=== PATIENT | male | born 1940 | race Caucasian/White ===

== ENCOUNTER 2018-07-02 11:59 | Day surgery (SDC) | payer MEDICARE, BC ==
[2018-07-02] MEDS ORDERED: LIDOCAINE 2% MDV (20MG/ML) 20ML VIAL IV ONE (12:00)
[2018-07-02] MEDS ORDERED: PROPOFOL 10 MG/ML VIAL IV ONE (12:00)
--- NOTE | 2018-07-02 16:50 | Operative Note ---
DATE OF SURGERY: 07/02/2018 OPERATION: ESOPHAGOGASTRODUODENOSCOPY with multiple biopsies. INDICATION: Recent episodes of pyrosis as well as pain in the epigastrium on eating. Upper endoscopy is performed at this time for further evaluation. ANESTHESIA: Intravenous sedation was administered by the department of anesthesiology and included Diprivan titrated to effect. PROCEDURE: Following informed consent from this alert individual, including a discussion of the risks and benefits of the procedure and an opportunity for the patient to ask questions, the patient was in the left lateral decubitus position. The Olympus [id number] video endoscope was inserted into the esophagus without resistance. The proximal esophagus had a normal appearance with normal folds and distensibility. The mid esophagus likewise was free from changes. The distal esophageal segment demonstrated ulceration at the level of the squamocolumnar junction. It was superficial and circumferential. There was some edema and erythema noted at this area as well. The stomach was then entered. The gastric fundus and pars media had a normal appearance with normal folds and distensibility but the antrum evaluated circumferentially demonstrated some patchy erythema. No ulcerations or erosions were seen. The pylorus was symmetrical and patent. The duodenal bulb, sweep and descending duodenum were then examined in a serial fashion and demonstrated multiple small duodenal ulcers involving the bulb and second portion of the duodenum. The instrument was then withdrawn back into the body of the stomach. Retroflexion accomplished following air insufflation failed to demonstrate any additional changes. The endoscope was then straightened. Biopsies were first taken from the stomach to assess for Helicobacter pylori and check histology. A second set of biopsies was then taken from the GE junction at the site of ulceration. After biopsies were completed. The endoscope was then withdrawn back through a normal otherwise unremarkable esophagus and removed from the patient. The patient tolerated the procedure well and was returned to the recovery area in stable condition. IMPRESSION: 1. Ulcerative distal esophagitis. 2. Multiple duodenal ulcers involving the duodenal bulb and second portion. 3. Antral gastritis. Biopsies taken. RECOMMENDATION: The patient will be started on Protonix 40 mg each morning. Further recommendations may be forthcoming pending results of pathology obtained today. As always, thank you for allowing me to participate in the care of your patient. CC: Riki VALDEZ
--- NOTE | 2018-07-02 16:50 | Operative Note ---
DATE OF SURGERY: 07/02/2018 OPERATION: COLONOSCOPY to the cecum with cold snare polypectomy x2. INDICATION: Prior history of colon polyps. The patient's last examination was 5 years ago. ANESTHESIA: Intravenous sedation was administered by the department of anesthesiology and included Diprivan titrated to effect. PROCEDURE: Following informed consent from this alert individual including a discussion of the risks and benefits of the procedure and an opportunity for the patient to ask questions, the patient was in the left lateral decubitus position. A digital rectal examination was performed. No abnormalities were noted. Following this, the Olympus [id number] video colonoscope was inserted into the rectum without resistance. The rectal mucosa had a normal appearance with normal folds and distensibility. The colonoscope was advanced up through the bowel to the level of the cecum without much difficulty. Scattered diverticula were seen in the sigmoid colon. The cecum was defined by noting the appendiceal orifice and ileocecal valve. The colon preparation overall was good. From the base of the cecum, the colonoscope was then slowly withdrawn. In the proximal transverse colon, there was a 4 mm polyp noted which was removed with cold snare polypectomy and suctioned through the colonoscope into a collection trap. No other polyps were seen until the rectum was reached. At the mid rectum there was a second 6 mm polyp noted which was likewise removed with cold snare polypectomy. Retroflexion in the rectum was endoscopically unremarkable. The endoscope was straightened and withdrawal. The patient tolerated the procedure well and was returned to the recovery area in stable condition. IMPRESSION: 1. A 4 mm transverse colon polyp removed with cold snare polypectomy. 2. A 6 mm rectal polyp removed with cold snare polypectomy. 3. Sigmoid diverticulosis. RECOMMENDATIONS: Further recommendations will be forthcoming pending results of pathology obtained today. Followup will also be with Dr. Nilesh Gardner. As always, thank you for allowing me to participate in the care of your patient. CC: Riki VALDEZ
== END 2018-07-02 13:54 | disposition home or self-care (01) ==
LOC: HOP 11:59
PROVIDERS: ATTEND Internal Medicine Gastroenterology
DX: Z12.11 Encounter for screening for malignant neoplasm of colon (principal); Z86.010 Personal history of colon polyps; D12.3 Benign neoplasm of transverse colon; D12.8 Benign neoplasm of rectum; K57.30 Diverticulosis of large intestine without perforation or abscess without bleeding; R10.13 Epigastric pain; K22.10 Ulcer of esophagus without bleeding; K26.9 Duodenal ulcer, unspecified as acute or chronic, without hemorrhage or perforation; K29.70 Gastritis, unspecified, without bleeding; I10 Essential (primary) hypertension; E78.00 Pure hypercholesterolemia, unspecified

== ENCOUNTER 2019-07-18 21:38 | Emergency (ER) | payer MEDICARE, BC ==
[2019-07-18] MEDS ORDERED: ASPIRIN 81 MG CHEWABLE TABLET PO ONE (21:39)
--- NOTE | 2019-07-18 21:46 | Emergency Department Record ---
History of Present Illness - General Stated Complaint: CHEST PAIN Time Seen by Provider: 07/18/19 21:39 Source: Patient, Family Mode of Arrival: Ambulatory Limitations: No limitations - History of Present Illness Initial Comments: 79 yo male presents with chest pain that started in the last 30 minutes. The chest pain is over the mid chest and to the right. He has some radiation down the right arm. No radiation to the back. No shortness of breath. No cough. No abdominal pain. No leg pain or edema. The pain is an ache or throb. Not sharp. He denies any history of CAD. He does exercise regularly. PCP is Dr Gardner. The discomfort was 5-10 at its maximum. It is currently 1-2/ 10. MD Complaint: Chest pain -: Minutes(s) (30) Pain Location: Substernal, Right chest Pain Radiation: RUE Severity: Moderate Quality: Aching Consistency: Constant, Other (Improving) Improves With: Nothing Worsens With: Nothing Context: Other Anginal Symptoms: Other Other Symptoms: Burping Treatments Prior to Arrival: None - Related Data Home Medications Medication Instructions Recorded Confirmed Last Taken Aspirin 81 mg PO DAILY 07/18/19 07/18/19 07/18/19 Finasteride [Proscar] 5 mg PO DAILY 07/18/19 07/18/19 07/18/19 Losartan Potassium [Cozaar] 100 mg PO DAILY 07/18/19 07/18/19 07/18/19 Pravastatin Sodium [Pravachol] 80 mg PO DAILY 07/18/19 07/18/19 07/18/19 Allergies Allergy/AdvReac Type Severity Reaction Status Date / Time No Known Drug Allergies Allergy Verified 07/18/19 21:43 Review of Systems Constitutional: Denies: Chills, Fever, Malaise, Weakness Eyes: Denies: Eye discharge ENT: Denies: Congestion, Throat pain Respiratory: Denies: Cough, Dyspnea, Hemoptysis, Stridor, Wheezes Cardiovascular: Reports: Chest pain. Denies: Edema, Palpitations, Syncope Endocrine: Denies: Fatigue, Polydipsia, Polyuria Gastrointestinal: Denies: Abdominal pain, Diarrhea, Nausea, Vomiting Genitourinary: Denies: Dysuria, Frequency, Hematuria Musculoskeletal: Denies: Arthralgia, Back pain, Joint swelling, Myalgia Skin: Denies: Bruising, Change in color, Rash Neurological: Denies: Headache, Numbness, Weakness Psychiatric: Denies: Anxiety Hematological/Lymphatic: Denies: Easy bleeding, Easy bruising Past Medical History - SOCIAL HISTORY Smoking Status: Never smoker - RESPIRATORY Hx Respiratory Disorders: No Hx Asthma: No Hx Bronchitis: No Hx COPD: No Hx Dyspnea: No Hx Pneumonia: No Hx Pulmonary Embolism: No Hx Sleep Apnea: No Hx Tuberculosis: No Hx of CPAP: No - CARDIOVASCULAR Hx Cardio Disorders: Yes Hx Abnormal EKG: No Hx Cardiac Cath: No Hx Chest Pain: No Hx CHF: No Hx Deep Vein Thrombosis: No Hx Edema: No Hx Heart Attack: No Hx Hypertension: Yes Hx Hypotension: No Hx Irregular Heartbeat: No Hx Palpitations: No Hx Pacemaker/Defib: No Hx Vascular Disease: No Hx Coronary Artery Disease: No Hx Coronary Artery Bypass Graft: No Hx Coronary Stent: No Hx Percutaneous Transluminal Coronary Angioplasty (PTCA): No - NEURO Hx Neuro Disorders: No Hx Brain Tumor: No Hx CVA: No Hx Dementia: No Hx Dizziness: No Hx Headaches: No Hx of Migraines: No Hx Neuropathy: No Hx Parkinson's Disease: No Hx Seizures: No Hx Speech Problem: No Hx TIA: No Hx of Neuromuscular Disease: No Hx Weakness: No Hx Paralysis: No - GI Hx GI Disorders: Yes Hx Abdominal Pain: No Hx Celiac Disease: No Hx Crohn's Disease: No Hx Diverticulitis: Yes Hx GI Bleed: No Hx Reflux: Yes Hx Hepatitis/Jaundice: No Hx Hiatal Hernia: No Hx Irritable Bowel: No Hx Liver Disease: No Hx Nausea/Vomiting: Yes (nausea right after eating) Hx Obstructive Bowel: No Hx Pancreatitis: No Hx Rectal Bleeding: No Hx Ulcer: No Hx Wt Loss/Wt Gain: No Hx Cirrhosis: No Hx of Polyps: Yes - Hx Genitourinary Disorders: Yes Hx Bladder Problem: No Hx Dialysis: No Hx Kidney Stones: No Hx Prostate Problems: Yes Hx Renal Disease: No Hx UTI: No - ENDOCRINE Hx Endocrine Disorders: No Hx Diabetes: No Hx Thyroid Disease: No - MUSCULOSKELETAL Hx Musculoskeletal Disorders: Yes Hx Arthritis: Yes Hx Back Injury: No Hx Fibromyalgia: No Hx Gout: No Hx Musculoskeletal Disease: No Hx Osteoporosis: No - PSYCH Hx Psych Problems: No Hx Anxiety: No Hx Depression: No - HEMATOLOGY/ONCOLOGY Hx Hematology/Oncology Disorders: Yes Hx Anemia: No Hx Blood Disorders: No Hx Bruising: No Hx Cancer: Yes (skin - freeze therapy) Hx Chemotherapy: No Hx Radiation Therapy: No Hx Clotting Problems: No Hx Sickle Cell Disease: No Hx Unexplained Bleeding: No Hx Blood Transfusions: No Hx Blood Transfusion Reaction: No Family Medical History Family Hx Comment (NOT TO BE USED IN PLACE OF ITEMS BELOW): Mother cancer, father leukemia Hx Cancer: Father, Mother Physical Exam - General General Appearance: Alert, Oriented x3, Cooperative, No acute distress Limitations: No limitations - Head Head exam: Atraumatic, Normocephalic, Normal inspection - Eye Eye exam: Normal appearance, PERRL. negative: Conjunctival injection, Scleral icterus - ENT ENT exam: Normal exam, Mucous membranes moist Ear exam: Normal external inspection Nasal Exam: Normal inspection Mouth exam: Normal external inspection - Neck Neck exam: Normal inspection - Respiratory Respiratory exam: Normal lung sounds bilaterally. negative: Accessory muscle use, Chest wall tenderness, Decreased breath sounds, Prolonged expiratory, Respiratory distress, Rhonchi, Stridor, Wheezes - Cardiovascular Cardiovascular Exam: Regular rate, Normal rhythm, Normal heart sounds Peripheral Pulses: 2+: Radial (R), Radial (L) - GI/Abdominal GI/Abdominal exam: Soft. negative: Tenderness - Rectal Rectal exam: Deferred - exam: Deferred - Extremities Extremities exam: Normal inspection. negative: Calf tenderness, Pedal edema, Tenderness - Back Back exam: Denies: CVA tenderness (R), CVA tenderness (L) - Neurological Neurological exam: Alert, Oriented X3 - Psychiatric Psychiatric exam: Normal affect, Normal mood - Skin Skin exam: Dry, Intact, Normal color, Warm Course Vital Signs 07/18/19 21:42 Temperature 97.8 F Pulse Rate [ 81 Pulse Ox Probe] Respiratory 20 Rate Blood Pressure 200/115 [Right Arm] Pulse Ox 97 - Reevaluation(s) Reevaluation #1: 07/18/19 21:48 EKG #1: 21:41 Rate: 78 Rhythm: sinus [place]: normal Intervals: normal ST segments: Inferior Q waves, no ST elevation Prior: 07/18/19 21:58 The initial BP was 200/115 Improved to 177/106 on repeat The pain has gone from 5/10 at home to nearly gone in the ED 07/18/19 22:04 The pain is 0/10 at this time. One nitro was given at the time the pain states his pain finally resolved. 07/18/19 22:12 The CBC is normal The CMP demonstrated a CR of 1.3 07/18/19 22:32 The Troponin is normal His HEART Score is 5. Recommending admission for observation. There is no cardiology available at [facility]. I recommend transfer to [facility] was contacted 07/18/19 22:38 Dr Davis accepts the patient for transfer 07/18/19 22:48 The CXR is normal on final read Medical Decision Making - Lab Data Result diagrams: 07/18/19 21:42 07/18/19 21:42 Disposition Disposition: Transfer Clinical Impression: Chest pain Qualifiers: Chest pain type: unspecified Qualified Code(s): R07.9 - Chest pain, unspecified Disposition: Acute Care Hospital Transfer Transfer To: [facility] [place] For Transfer: Chest pain Accepting Physician: Ryan Time Discussed w/Accepting Physician: 22:33 Condition: (2) Stable Forms: Patient Portal Access Time of Disposition: 22:33 Quality - Quality Measures Quality Measures: N/A - Blood Pressure Screening Does Patient Have Any of the Following: Active Dx of HTN Blood Pressure Classification: Hypertensive Reading Systolic Measurement: 200 Diastolic Measurement: 115 Screening for High Blood Pressure: Patient Exclusion, Hx of HTN [G9744]
[2019-07-18 21:50] LABS: HEMATOCRIT 46.8 % (42.0-52.0); HEMOGLOBIN 15.1 gm/dl (14.0-18.0); MEAN CELL VOLUME 91.1 fl (81-97); MEAN CORPUSCULAR HEMOGLOBIN 29.4 pg (27-33); MEAN CORPUSCULAR HGB CONC 32.3 g/dl (32-36); MEAN PLATELET VOLUME 9.2 fl (7.4-10.4); PLATELET COUNT 253 K/uL (130-400); RED BLOOD COUNT 5.14 M/uL (4.40-5.70); RED CELL DISTRIBUTION WIDTH 13.1 % (11.5-14.5); WHITE BLOOD COUNT W/O DIFF 8.1 K/uL (4.2-12.2)
[2019-07-18] MEDS ORDERED: NITROGLYCERIN 0.4MG SL TABLET #25 BTL SL ONE ×2 (21:53→21:55)
[2019-07-18 22:02] LABS: PARTIAL THROMBOPLASTIN TIME 27.6 SECONDS (24.5-39.1); PROTHROMBIN TIME (PATIENT) 9.9 SECONDS (9.5-12.1)
[2019-07-18 22:03] LABS: BLOOD UREA NITROGEN 22 mg/dL (8-23); CREATININE 1.3 mg/dL (0.7-1.2); EST GLOMERULAR FILTRATION RATE 57 mL/min
[2019-07-18 22:06] LABS: GLUCOSE,RANDOM 126 mg/dL (74-109)
[2019-07-18 22:09] LABS: ALB/GLOB RATIO 1.6 (1.1-1.8); ALBUMIN 4.3 g/dL (4.0-5.0); ALKALINE PHOSPHATASE 76 U/L (40-129); ALT/SGPT 20 U/L (<41); AST/SGOT 19 U/L (10.0-50.0)
--- NOTE | 2019-07-18 22:17 | RADIOLOGY REPORT ---
EXAMINATION: Single View Chest EXAM DATE: 07/18/2019 10:12 PM TECHNIQUE: Single view chest INDICATION: chest pain COMPARISON: None. ENCOUNTER: Not applicable FINDINGS: The heart, mediastinum, and pulmonary vasculature are normal. No lung consolidation or pleural effu sions are present. No pneumothorax is present. IMPRESSION: No acute pulmonary disease process Dictated by: Va Valle DO on 07/18/2019 10:13 PM. .
== END 2019-07-18 23:02 | disposition short-term general hospital (02) ==
LOC: ER 21:38
DX: R07.2 Precordial pain (principal); H53.8 Other visual disturbances; I10 Essential (primary) hypertension
CPT/HCPCS: 71045; 80053; 84484; 85027; 85610; 85730; 93005; 93010; 99285

== ENCOUNTER 2019-07-31 15:31 | Emergency (ER) | payer MEDICARE, BC ==
[2019-07-31 15:55] LABS: ABSOLUTE NEUTROPHIL COUNT 4.84; BASO % 0.4 % (0-6); EOS % 2.2 % (0-6); GRAN % 57.1 % (47-80); HEMATOCRIT 46.7 % (42.0-52.0); HEMOGLOBIN 15.4 gm/dl (14.0-18.0); LYMPH % 25.9 % (16-45); MEAN CELL VOLUME 89.8 fl (81-97); MEAN CORPUSCULAR HEMOGLOBIN 29.6 pg (27-33); MEAN PLATELET VOLUME 9.1 fl (7.4-10.4); MONO % 14.4 % (0-9); PLATELET COUNT 265 K/uL (130-400); RED CELL DISTRIBUTION WIDTH 13.1 % (11.5-14.5); WHITE BLOOD COUNT W/O DIFF 8.5 K/uL (4.2-12.2)
[2019-07-31 16:01] LABS: CREATININE 1.4 mg/dL (0.7-1.2)
--- NOTE | 2019-07-31 16:10 | Emergency Department Record ---
History of Present Illness - General Chief Complaint: Slurred speech Stated Complaint: SLURRING WORDS Time Seen by Provider: 07/31/19 15:41 Source: Patient, RN notes reviewed Mode of Arrival: Ambulatory - History of Present Illness Initial Comments: 79 year male stated 30 minutes prior to arrival he had slurred speech(garbled and straining to get words out) which lasted 5 minutes and is now better. No headache and he said he has has had episodes of palpatations in the last couple of weeks.PMH hypertension, Hypercholesterol Onset/Timin -: Minutes(s) History of same: No Improves With: None Worsens With: None Associated Symptoms: Denies other symptoms Treatments Prior to Arrival: None - Roselyn Coma Scale Eye Response: (4) Open spontaneously Motor Response: (6) Obeys commands Verbal Response: (5) Oriented [place] Total: 15 - Related Data Home Medications: Home Medications Medication Instructions Recorded Confirmed Last Taken Carvedilol [Coreg] 3.125 mg PO BID 07/31/19 07/31/19 07/31/19 Pantoprazole Sodium 40 mg PO DAILY 07/31/19 07/31/19 07/31/19 Valsartan [Diovan] 160 mg PO DAILY 07/31/19 07/31/19 07/30/19 Allergies/Adverse Reactions: Allergies Allergy/AdvReac Type Severity Reaction Status Date / Time No Known Drug Allergies Allergy Verified 07/18/19 21:43 Travel Screening - Travel/Exposure Within Last 30 Days Have you traveled within the last 30 days?: No - Travel/Exposure Within Last Year Have you traveled outside the [place] in the last year?: No - Additonal Travel Details Have you been exposed to anyone with a communicable illness?: No - Travel Symptoms Symptom Screening: None Review of Systems Reviewed: No additional complaints except as noted below Constitutional: Reports: As per HPI. Denies: Chills, Fever, Malaise, Night sweats, Weakness, Weight change Eyes: Reports: As per HPI. Denies: Eye discharge, Eye pain, Photophobia, Vision change ENT: Reports: As per HPI. Denies: Congestion, Dental pain, Ear pain, Epistaxis, Hearing loss, Throat pain Respiratory: Reports: As per HPI. Denies: Cough, Dyspnea, Hemoptysis, Stridor, Wheezes Cardiovascular: Reports: As per HPI. Denies: Arrhythmia, Chest pain, Dyspnea on exertion, Edema, Murmurs, Orthopnea, Palpitations, Paroxysmal nocturnal dyspnea, Rheumatic Fever, Syncope Endocrine: Reports: As per HPI. Denies: Fatigue, Heat or cold intolerance, Polydipsia, Polyuria Gastrointestinal: Reports: As per HPI. Denies: Abdominal pain, Constipation, Diarrhea, Hematemesis, Hematochezia, Melena, Nausea, Vomiting Genitourinary: Reports: As per HPI. Denies: Dysuria, Frequency, Hematuria, Incontinence, Retention, Testicular pain, Testicular mass, Urgency Musculoskeletal: Reports: As per HPI. Denies: Arthralgia, Back pain, Gout, Joint swelling, Myalgia, Neck pain Skin: Reports: As per HPI. Denies: Bruising, Change in color, Change in hair/nails, Lesions, Pruritus, Rash Neurological: Reports: As per HPI, Other (slurred speech). Denies: Abnormal gait, Confusion, Headache, Numbness, Paresthesias, Seizure, Tingling, Tremors, Vertigo, Weakness Psychiatric: Reports: As per HPI. Denies: Anxiety, Auditory hallucinations, Depression, Homicidal thoughts, Suicidal thoughts, Visual hallucinations Hematological/Lymphatic: Reports: As per HPI. Denies: Anemia, Blood Clots, Easy bleeding, Easy bruising, Swollen glands Past Medical History - SOCIAL HISTORY Smoking Status: Never smoker Alcohol Use: None Drug Use: None - RESPIRATORY Hx Respiratory Disorders: No Hx Asthma: No Hx Bronchitis: No Hx COPD: No Hx Dyspnea: No Hx Pneumonia: No Hx Pulmonary Embolism: No Hx Sleep Apnea: No Hx Tuberculosis: No Hx of CPAP: No - CARDIOVASCULAR Hx Cardio Disorders: Yes Hx Abnormal EKG: No Hx Cardiac Cath: No Hx Chest Pain: No Hx CHF: No Hx Deep Vein Thrombosis: No Hx Edema: No Hx Heart Attack: No Hx Hypertension: Yes Hx Hypotension: No Hx Irregular Heartbeat: No Hx Palpitations: No Hx Pacemaker/Defib: No Hx Vascular Disease: No Hx Coronary Artery Disease: No Hx Coronary Artery Bypass Graft: No Hx Coronary Stent: No Hx Percutaneous Transluminal Coronary Angioplasty (PTCA): No - NEURO Hx Neuro Disorders: No Hx Brain Tumor: No Hx CVA: No Hx Dementia: No Hx Dizziness: No Hx Headaches: No Hx of Migraines: No Hx Neuropathy: No Hx Parkinson's Disease: No Hx Seizures: No Hx Speech Problem: No Hx TIA: No Hx of Neuromuscular Disease: No Hx Weakness: No Hx Paralysis: No - GI Hx GI Disorders: Yes Hx Abdominal Pain: No Hx Celiac Disease: No Hx Crohn's Disease: No Hx Diverticulitis: Yes Hx GI Bleed: No Hx Reflux: Yes Hx Hepatitis/Jaundice: No Hx Hiatal Hernia: No Hx Irritable Bowel: No Hx Liver Disease: No Hx Nausea/Vomiting: Yes (nausea right after eating) Hx Obstructive Bowel: No Hx Pancreatitis: No Hx Rectal Bleeding: No Hx Ulcer: No Hx Wt Loss/Wt Gain: No Hx Cirrhosis: No Hx of Polyps: Yes - Hx Genitourinary Disorders: Yes Hx Bladder Problem: No Hx Dialysis: No Hx Kidney Stones: No Hx Prostate Problems: Yes Hx Renal Disease: No Hx UTI: No - ENDOCRINE Hx Endocrine Disorders: No Hx Diabetes: No Hx Thyroid Disease: No - MUSCULOSKELETAL Hx Musculoskeletal Disorders: Yes Hx Arthritis: Yes Hx Back Injury: No Hx Fibromyalgia: No Hx Gout: No Hx Musculoskeletal Disease: No Hx Osteoporosis: No - PSYCH Hx Psych Problems: No Hx Anxiety: No Hx Depression: No - HEMATOLOGY/ONCOLOGY Hx Hematology/Oncology Disorders: Yes Hx Anemia: No Hx Blood Disorders: No Hx Bruising: No Hx Cancer: Yes (skin - freeze therapy) Hx Chemotherapy: No Hx Radiation Therapy: No Hx Clotting Problems: No Hx Sickle Cell Disease: No Hx Unexplained Bleeding: No Hx Blood Transfusions: No Hx Blood Transfusion Reaction: No Family Medical History Any Significant Family History?: No Family Hx Comment (NOT TO BE USED IN PLACE OF ITEMS BELOW): Mother cancer, father leukemia Hx Cancer: Father, Mother Physical Exam - General General Appearance: Alert, Oriented x3, Cooperative, No acute distress - Head Head exam: Normal inspection - Eye Eye exam: Normal appearance, PERRL Pupils: Normal accommodation - ENT ENT exam: Normal exam, Mucous membranes moist, Normal external ear exam, Normal orophraynx, TM's normal bilaterally Ear exam: Normal external inspection. negative: External canal tenderness Nasal Exam: Normal inspection. negative: Discharge, Sinus tenderness Mouth exam: Normal external inspection, Tongue normal Teeth exam: Normal inspection. negative: Dental caries Throat exam: Normal inspection. negative: Tonsillar erythema, Tonsillar exudate - Neck Neck exam: Normal inspection, Full ROM. negative: Tenderness - Respiratory Respiratory exam: Normal lung sounds bilaterally. negative: Respiratory distress - Cardiovascular Cardiovascular Exam: Regular rate, Normal rhythm, Normal heart sounds - GI/Abdominal GI/Abdominal exam: Soft, Normal bowel sounds. negative: Tenderness - Rectal Rectal exam: Deferred - exam: Deferred - Extremities Extremities exam: Normal inspection, Full ROM, Normal capillary refill. negative: Tenderness - Back Back exam: Reports: Normal inspection, Full ROM. Denies: Muscle spasm, Rash noted, Tenderness - Neurological Neurological exam: Alert, Normal gait, Oriented X3, Reflexes normal - Psychiatric Psychiatric exam: Normal affect, Normal mood - Skin Skin exam: Dry, Intact, Normal color, Warm Course Vital Signs 07/31/19 15:36 Temperature 98.7 F Pulse Rate 68 Respiratory 16 Rate Blood Pressure 171/104 Pulse Ox 98 - Reevaluation(s) Reevaluation #1: 07/31/19 16:[address] Cain from the stroke team and he requested he be sent to the Ed at [facility]. Discussed case with Dr Carrasquillo and he accepted the patient to the ED Reevaluation #2: repeat neuro exam negative NIH zero 07/31/19 16:39 Reevaluation #3: Transfer to [facility] Emergency department 07/31/19 16:40 Medical Decision Making - Data Complexity MDM Data: Labs Ordered and/or Reviewed, X-Ray Ordered and/or Reviewed (CT head negative), EKG Ordered and/or Reviewed (EKG NSR no acute changes) - Lab Data Result diagrams: 07/31/19 15:45 07/31/19 15:45 Disposition Clinical Impression: TIA (transient ischemic attack), Hypercholesteremia Hypertension Qualifiers: Hypertension type: essential hypertension Qualified Code(s): I10 - Essential (primary) hypertension Disposition: Acute Care Hospital Transfer Condition: (2) Stable Forms: Patient Portal Access Time of Disposition: 16:39 Quality - Quality Measures Quality Measures: N/A - Blood Pressure Screening Does Patient Have Any of the Following: No, Active Dx of HTN Blood Pressure Classification: Hypertensive Reading Systolic Measurement: 171 Diastolic Measurement: 104 Screening for High Blood Pressure: Patient Exclusion, Hx of HTN [G9744]
--- NOTE | 2019-07-31 16:12 | CT SCAN REPORT ---
EXAMINATION: HEAD WO CONTRAST EXAM DATE: 07/31/2019 4:02 PM TECHNIQUE: Noncontrast axial images were obtained to the brain. INDICATION: slurred speech. No weakness. Possible history of dysrhythmia COMPARISON: None. ENCOUNTER: Not applicable. HAND DOMINANCE: Unknown FINDINGS: Low-attenuation areas in the periventricular and subcortical white matter. The brain parenchyma is o therwise unremarkable. No loss of mcclendon-white matter differentiation or sulcal effacement to indicate acute infarction. No evidence of intracranial mass. There is a region of mild hyperattenuation in the bilateral middle cerebral arteries but this is not convincing for thrombus There is enlargement of the ventricles, sulci, and subarachnoid spaces. No hydrocephalus. There is arterial calcification. No intra-axial or extra-axial fluid collection. No evidence of intracranial hemorrhage. The paranasal sinuses, mastoid air cells, and orbits are unremarkable. The calvarium is intact. IMPRESSION: 1. No CT evidence of intracranial hemorrhage or acute intracranial abnormality. 2. Moderate white matter hypoattenuation most commonly represents chronic microvascular ischemic di sease. 3. Mild cerebral and cerebellar atrophy, consistent with age. MR would be more sensitive for acute infarct A Red Critical Result was communicated to Dr. Ye Lei at 07/31/2019 4:04 PM Dictated by: TEREZA CANTOR MD on 07/31/2019 4:02 PM. .
== END 2019-07-31 17:19 | disposition short-term general hospital (02) ==
LOC: ER 15:31
DX: G45.9 Transient cerebral ischemic attack, unspecified (principal); E78.00 Pure hypercholesterolemia, unspecified; I10 Essential (primary) hypertension
CPT/HCPCS: 70450; 80048; 84484; 85025; 85730; 93005; 93010; 99285